=== PATIENT | female | born 1945 ===

== ENCOUNTER 2016-07-31 11:45 | Outpatient (RCR) | payer OTHER | END 2016-08-11 | disposition home or self-care (01) | LOC: PTY 11:45 | DX: Z96.652 Presence of left artificial knee joint (principal) | CPT/HCPCS: 97110; 97140; G0283 ==

== ENCOUNTER 2016-08-14 10:50 | Outpatient (RCR) | payer OTHER | END 2016-09-08 | disposition home or self-care (01) | LOC: PTY 10:50 | DX: Z96.652 Presence of left artificial knee joint (principal) | CPT/HCPCS: 97110; 97140; G0283 ==

== ENCOUNTER 2016-09-14 16:05 | Outpatient (RCR) | payer OTHER | END 2016-10-09 | disposition home or self-care (01) | LOC: PTY 16:05 | DX: Z47.1 Aftercare following joint replacement surgery (principal); Z96.652 Presence of left artificial knee joint; Z88.0 Allergy status to penicillin | CPT/HCPCS: 97110; 97140; G0283 ==

== ENCOUNTER 2016-10-21 14:55 | Outpatient (RCR) | payer OTHER | END 2016-11-08 | disposition home or self-care (01) | LOC: PTY 14:55 | DX: Z96.652 Presence of left artificial knee joint (principal); M25.562 Pain in left knee | CPT/HCPCS: 97110; 97140; G0283 ==

== ENCOUNTER 2016-11-09 15:16 | Outpatient (RCR) | payer OTHER | END 2016-12-09 | disposition home or self-care (01) | LOC: PTY 15:16 | DX: M25.562 Pain in left knee (principal); Z96.652 Presence of left artificial knee joint; R26.2 Difficulty in walking, not elsewhere classified | CPT/HCPCS: 97110; 97140; G0283 ==